=== PATIENT | male | born 1985 | race Caucasian/White ===

== ENCOUNTER 2018-04-02 10:35 | Emergency (ER) | payer OTHER ==
[~2018-04-02] VITALS: Ht 177.8 cm; Wt 81.7 kg
[2018-04-02] MEDS ORDERED: BACTRIM DS TAB1 EACH PO (12:17)
[2018-04-02] MEDS ORDERED: KEFLEX500 M1 PO (12:17)
[2018-04-02] MEDS ORDERED: IBUPROFEN 800800 M1 PO (12:17)
[2018-04-02] MEDS ORDERED: ACETAMINOPHEN-1 EAC1 PO (12:17)
[2018-04-02 12:38] VITALS: BP 125/75
== END 2018-04-02 12:39 | disposition home or self-care (01) ==
LOC: M.ERS 10:35
DX: S61.512A Laceration without foreign body of left wrist, initial encounter (principal); L08.9 Local infection of the skin and subcutaneous tissue, unspecified; W26.8XXA Contact with other sharp object(s), not elsewhere classified, initial encounter; Y93.89 Activity, other specified; Y92.89 Other specified places as the place of occurrence of the external cause; Y99.8 Other external cause status